=== PATIENT | female | born 1995 | race Caucasian/White ===

== ENCOUNTER 2023-09-19 11:59 | Day surgery (SDC) | payer OTHER ==
[~2023-09-19] VITALS: Ht 172.7 cm; Wt 61.4 kg
[~2023-09-19 11:59] MED LIST: IBLOOD GLUCOSE TEST STRIP 1 EA TEST VI PRN; LACTATED RINGER'S 1,000 ML IV SCH; LIDOCAINE HCL 1% 5 ML SDV INJ ONE; MIDAZOLAM HCL 5 MG/5 ML VIAL IV PRN; fentaNYL citrate 100 MCG/2 ML VIAL IV PRN
[2023-09-19 12:25] VITALS: BP 111/62
[2023-09-19] MEDS ORDERED: MIDAZOLAM HCL 5 MG/5 ML VIAL ONE (12:45)
[2023-09-19] MEDS ORDERED: fentaNYL citrate 100 MCG/2 ML VIAL ONE (12:45)
--- NOTE | 2023-09-19 14:14 | NUR ---
09/19/23 1414 Laura Blank 1402- PT PRESENTS TO PACU, SEMI GIRALDO LEFT LATERAL POSITION. PT WAKES TO STIMULI, SLURRED SPEECH, AND FALLS BACK TO SLEEP. PT DENIES PAIN AND NAUSEA. ABD FIRM, NON DISTENDED, ENCOURAGED TO PASS GAS. O2 AT 3L PER NC, BREATHING EVEN AND NON LABORED. LR INFUSING TO RAC IV, ALL MONITORS IN PLACE. 1406- PT SATS REMAIN 100% ON 3L O2 PER NC, MOVED TO ROOM AIR AT THIS TIME. NO SIGNS OF DISTRESS. 1414- PT CONTINUES TO REST AT THIS TIME, CONTINUE TO MONITOR.
[2023-09-19 14:54] VITALS: BP 102/56
[2023-09-19 14:54] LABS: BASOPHILS 0.2 % (0-2); EOSINOPHILS 0.3 % (0-6); HEMATOCRIT 32.6 % (35.0-50.0); HEMOGLOBIN 11.2 g/dL (12.0-18.0); LYMPHOCYTES 20.1 % (24-44); MCHC 34.3 g/dl (30-36); MCV 84.5 fl (81-99); MONOCYTES 5.3 % (0-12); NEUTROPHILS 74.1 % (39-80); PLATELET COUNT 217 K/uL (140-440); RBC 3.86 M/ul (4.3-5.7); RDW 12.3 (10.5-15.0)
--- NOTE | 2023-09-23 15:28 | OR ---
[facility] [address] [place], [place] [address] Signed DATE OF OPERATION: 09/19/2023 SURGEON: Gale Kevin MD PREOPERATIVE DIAGNOSES: Episodic bright red rectal bleeding. Negative family history of colon cancer. No evidence of internal hemorrhoids or fissure on exam. POSTOPERATIVE DIAGNOSES: 1. Distal sigmoid polyp with inflammatory features. 2. Normal colon otherwise. PROCEDURE: Total colonoscopy to cecum with hot snare polypectomy x1 and biopsies of rectum and sigmoid colon. ANESTHESIA: Intravenous sedation; fentanyl 200 mcg and Versed 10 mg. INDICATION: This 28-year-old white woman has had episodes of painless bright red rectal bleeding. She was seen in my office on a walk-in basis for this problem, was found to have no sign of anal fissure nor signs of internal hemorrhoids on anoscopy. It is notable that she has had pyelonephritis (clinical diagnosis) and treated with antibiotics in the past while in [place]. She recently has had no rectal bleeding. Has had episodes in the meantime. She is admitted at this time to undergo colonoscopy to assess a source of her episodic rectal bleeding. She understands the risk of bleeding, infection, and perforation related to colonoscopy and wished to proceed. FINDINGS: The prep was excellent. Complete colonoscopy was undertaken of the cecum with full intubation of the cecum. Though the cecum appeared normal, biopsies were obtained as were biopsies of the sigmoid and to a lesser extent rectum. There was a single polyp noted at the distal rectosigmoid area which had an inflammatory appearance to it generally. It was excised with hot snare technique. PROCEDURE IN DETAIL: The patient was brought to the endoscopy suite and placed in lateral decubitus position given intravenous sedation to a point of slurred speech and nystagmus. Digital rectal examination was normal. Electronically Signed By: GALE KEVIN MD 09/23/23 1528 PATIENT NAME: GEETA BEEBE OPERATIVE REPORT DATE OF : [birth year] REPORT #: [id number] PHYSICIAN: GALE KEVIN MD PCP: NO PRIMARY CARE PHYSICIAN REPORT IS CONFIDENTIAL AND NOT TO BE RELEASED WITHOUT AUTHORIZATION [facility] [address] [place], [place] [address] Signed An Olympus video colonoscope was passed in the rectum and manipulated throughout the colon noting a small somewhat inflammatory polyp of the rectosigmoid. This was excised with hot snare polypectomy technique and passed for pathology. The scope was advanced beyond this ultimately to the cecum. Additional sedation was given as needed. The prep was quite good. Biopsies were taken of the cecum, though it appeared normal. Scope was then withdrawn. Examination throughout showed no sign of abnormality. Biopsies were taken of the sigmoid and rectum to assess for occult colitis. The excision site in the rectosigmoid was hemostatic. Retroflexed view showed no evidence of fissure nor sign of hemorrhoids. The scope was straightened, withdrawn and the patient was taken to recovery room in good condition. CONCLUDING DIAGNOSIS: It is certainly possible that the small polyp of the rectosigmoid was accounting for her bleeding. There is no evidence of fissure or hemorrhoids and no obvious findings of colitis. Biopsies have been obtained to assess for occult colitis and complete polypectomy has been accomplished as well. PLAN: We recommend a high-fiber diet or fiber supplement such as Metamucil. She will call if the bleeding should recur. MD NYA Mayer/MODL /[id number] Copies: ~ Electronically Signed By: GALE KEVIN MD 09/23/23 1528 PATIENT NAME: GEETA BEEBE OPERATIVE REPORT DATE OF : [birth year] REPORT #: [id number] PHYSICIAN: GALE KEVIN MD PCP: NO PRIMARY CARE PHYSICIAN REPORT IS CONFIDENTIAL AND NOT TO BE RELEASED WITHOUT AUTHORIZATION
--- NOTE | 2023-09-23 15:40 | PATH ---
[facility] [address] [facility] [place] [place] [address] Signed SPECIMEN(S): A SIGMOID POLYP SPECIMEN(S): B CECUM COLON BIOPSY SPECIMEN(S): C SIGMOID COLON BIOPSY SPECIMEN SOURCE: A. SIGMOID POLYP B. CECUM COLON BIOPSY C. SIGMOID COLON BIOPSY CLINICAL HISTORY: Screening colonoscopy. Rectal bleeding FINAL PATHOLOGIC DIAGNOSIS: A. Sigmoid colon polyp: - Tubular adenoma. - Negative for high-grade dysplasia or malignancy. B. Cecum, biopsy: - Benign colonic mucosa with no significant pathologic abnormality. - No colitis or neoplasm identified. C. Sigmoid colon, biopsy: - Benign colonic mucosa with no significant pathologic abnormality. - No colitis or neoplasm identified. [facility] MICROSCOPIC EXAMINATION: Histologic sections of all submitted blocks are examined by light microscopy. These findings, together with the gross examination, support the pathologic diagnosis. GROSS DESCRIPTION: A. The specimen, labeled and designated "Rhina, designated per requisition, sigmoid colon polyp," is received in formalin and consists of one fragment of soft tena tissue that is up to 0.5 cm in greatest dimension. Entirely submitted in (A1). B. The specimen, labeled and designated "Rhina, designated as per requisition, cecum colon biopsy," is received in formalin and consists of two fragments of soft tena tissue that are up to 0.7 cm in greatest dimension. Entirely submitted in (B1). C. The specimen, labeled and designated "Rhina, designated per requisition, sigmoid colon biopsy," is received in formalin and consists of five fragments of soft tena tissue that are up to 0.9 cm in PATIENT NAME: GEETA BEEBE PATHOLOGY DATE OF : [birth year] REPORT #: [id number] PHYSICIAN: GIGI TRAVIS PCP: NO PRIMARY CARE PHYSICIAN REPORT IS CONFIDENTIAL AND NOT TO BE RELEASED WITHOUT AUTHORIZATION [facility] [address] [place], [place] [address] Signed greatest dimension. Entirely submitted in (C1). TW (under the direct supervision of a pathologist) The Gross Description was prepared using a voice recognition system. The report was reviewed for accuracy; however, sound-alike word errors, addition and/or deletions may occur. If there is any question about this report, please contact Client Services. ADDITIONAL NOTES: Immunohistochemical and/or in situ hybridization studies if performed in this case included appropriate positive controls that reacted as expected. This test was developed and its performance characteristics determined by [facility]. It has not been cleared or approved by the U.S. Food and Drug Administration. The FDA has determined that such clearance or approval is not necessary. This test is used for clinical purposes. It should not be regarded as investigational or for research. [facility] is certified under the Clinical Laboratory Improvement Amendments of 1988 (CLIA) as qualified to perform high complexity clinical laboratory testing. PERFORMING LABORATORY: Technical component was performed by [facility], [address] [place] [id number] (CLIA# [id number]). Professional interpretation was performed by [facility], [address] [place] [id number] (CLIA#: [id number]). Diagnostician: Iam Gilmore MD Pathologist Electronically Signed 09/23/2023 Copies: ~ PATIENT NAME: GEETA BEEBE PATHOLOGY DATE OF : [birth year] REPORT #: [id number] PHYSICIAN: GIGI PATHOLOGY PCP: NO PRIMARY CARE PHYSICIAN REPORT IS CONFIDENTIAL AND NOT TO BE RELEASED WITHOUT AUTHORIZATION
== END 2023-09-19 15:00 | disposition home or self-care (01) ==
LOC: OPS 11:59 → DS 11:59 → OPS 13:00
PROVIDERS: ATTEND Surgery
PROC: 0DBN8ZX Excision of Sigmoid Colon, Via Natural or Artificial Opening Endoscopic, Diagnostic (ICD-10-PCS; 2023-09-19)
PROC: 0DBH8ZX Excision of Cecum, Via Natural or Artificial Opening Endoscopic, Diagnostic (ICD-10-PCS; principal; 2023-09-19 13:00)
DX: D12.5 Benign neoplasm of sigmoid colon (principal); Z90.09 Acquired absence of other part of head and neck
CPT/HCPCS: 36415; 84703; 85025; 88305; 99153; G0500; J2250; J3010

== ENCOUNTER 2023-09-23 12:46 | Day surgery (SDC) | payer OTHER ==
[~2023-09-23] VITALS: Ht 172.7 cm; Wt 61.3 kg
[~2023-09-23 12:46] MED LIST changes: +LIDOCAINE HCL 4% 50 ML BTL TOP SCH; -MIDAZOLAM HCL 5 MG/5 ML VIAL IV PRN; -fentaNYL citrate 100 MCG/2 ML VIAL IV PRN
[2023-09-23 13:00] VITALS: BP 110/61
[2023-09-23] MEDS ORDERED: fentaNYL citrate 100 MCG/2 ML VIAL ONE (13:40)
[2023-09-23] MEDS ORDERED: MIDAZOLAM HCL 5 MG/5 ML VIAL ONE (13:40)
[2023-09-23] MEDS ORDERED: ondansetron HCL 4 MG/2 ML VIAL ONE (13:59)
--- NOTE | 2023-09-23 14:29 | NUR ---
09/23/23 1429 Laura Blank 1415- PT ARRIVES TO PACU, SEMI GIRALDO POSITION. AWAKE BUT DROWSY, REPORTS HER NAUSEA IS IMPROVING FROM PROCEDURE. LR INFUSING TO RAC IV. DENIES PAIN AT THIS TIME. 3L PER NC IN PLACE ON ARRIVAL AND REMOVED AT THIS TIME TO ROOM AIR. PT HAS NO COMPLAINTS. ALL MONITORS IN PLACE. 1422- DR KEVIN AT BEDSIDE TO DISCUSS FINDINGS. ICE WATER PROVIDED, TOLERATING WELL. 1428- PT RESTING AT THIS TIME, BREATHING EVEN AND NON LABORED. NO SIGNS OF DISTRESS.
[2023-09-23 15:18] VITALS: BP 96/59
--- NOTE | 2023-09-23 15:28 | OR ---
[facility] [address] [place], [place] [address] Signed DATE OF OPERATION: 09/23/2023 SURGEON: Gale Kevin MD PREOPERATIVE DIAGNOSES: 1. Anemia (hematocrit 32, recent colonoscopy showing only small polyp). 2. Persistent nausea. 3. Family history of celiac disease. POSTOPERATIVE DIAGNOSES: Normal-appearing upper endoscopy including esophagus, stomach, and duodenum. PROCEDURE: Esophagogastroduodenoscopy with biopsy. ANESTHESIA: Intravenous sedation; fentanyl 100 mcg and Versed 5 mg and periprocedural Zofran 4 mg. INDICATIONS FOR THE PROCEDURE: This is a 28-year-old white woman, who has no primary care physician. She is part of the [employer]. She has had episodic dark rectal bleeding. Anoscopy performed in the office setting recently showed no evidence of fissure, hemorrhoids, or other anorectal problem. She underwent colonoscopy four days ago, which confirmed a small polyp of the rectosigmoid, but not likely to account for dark red rectal bleeding. She was affirmed to have no sign of anorectal pathology. No sign of inflammatory bowel disease or other problem. CBC was checked postprocedure, showing hematocrit of 32. The patient does admit to rather persistent, pervasive nausea from time to time. On the basis of no clear evidence of lesion to account for dark blood per rectum and her nausea, consideration is made for peptic disease and on that basis, I have offered upper endoscopy. The risk of bleeding, infection, perforation related to upper endoscopy reported, reviewed in detail. She understands and wished to proceed. FINDINGS: Upper endoscopy was essentially normal. There was no sign of inflammatory lesion of the esophagus, stomach, or duodenum. There is certainly no ulceration, no neoplasm. Biopsies were obtained of the duodenum in several areas to assess for celiac disease as she does have family history of celiac disease. Stomach showed no sign of ulceration or diffuse gastritis. The flap valve was optimal. She tolerated procedure well though was not as deeply sedated as previously despite similar dosing of medication. Electronically Signed By: GALE KEVIN MD 09/23/23 1528 PATIENT NAME: GEETA BEEBE OPERATIVE REPORT DATE OF : [birth year] REPORT #: [id number] PHYSICIAN: GALE KEVIN MD PCP: NO PRIMARY CARE PHYSICIAN REPORT IS CONFIDENTIAL AND NOT TO BE RELEASED WITHOUT AUTHORIZATION [facility] [address] [place], [place] [address] Signed DESCRIPTION OF PROCEDURE: The patient was brought to the endoscopy suite given topical lidocaine hypopharyngeal anesthesia. In the lateral decubitus position, she was given intravenous sedation to the point of slurred speech and nystagmus with full cardiopulmonary monitoring. A bite block was placed. An Olympus video upper endoscope was passed into the hypopharynx. The vocal cords appeared normal. Scope was advanced to the esophagus without problem throughout its length, it was normal in every way. The scope was passed to the stomach, which was insufflated. There was no sign of bile or other abnormality. Rugal folds were normal. The antrum appeared normal as did the pylorus. The scope was passed through into the duodenum. The duodenum was normal. Biopsies were obtained distally and proximally to assess for celiac disease as well as subacute inflammation. The ampulla was identified as normal. The scope was withdrawn to the stomach and biopsies taken there for both HUSSAIN and pathologic testing. Retroflexed view was undertaken showing a good flap valve. The scope was withdrawn to the distal esophagus and biopsies obtained of the normal appearing esophagus in the distal aspect. The scope was further withdrawn and removed. The patient was taken to the recovery room in good condition. CONCLUDING DIAGNOSIS: No lesion to account for anemia. She may have subclinical peptic disease or gastroesophageal reflux. We will empirically treated with Prilosec 20 mg daily. We will see her back in the office in 4-6 weeks to assess her progress and review her pathology reports. MD NYA Mayer/MODL /[id number] Copies: ~ Electronically Signed By: GALE KEVIN MD 09/23/23 1528 PATIENT NAME: GEETA BEEBE OPERATIVE REPORT DATE OF : [birth year] REPORT #: [id number] PHYSICIAN: GALE KEVIN MD PCP: NO PRIMARY CARE PHYSICIAN REPORT IS CONFIDENTIAL AND NOT TO BE RELEASED WITHOUT AUTHORIZATION
--- NOTE | 2023-09-29 14:21 | PATH ---
[facility] [facility] [address] [facility] [place], [place] [address] Signed SPECIMEN(S): A ANTRUM BIOPSY SPECIMEN(S): B DUODENAL BIOPSY SPECIMEN(S): C LOWER ESOPHAGUS BIOPSY SPECIMEN SOURCE: A. ANTRUM BIOPSY B. DUODENAL BIOPSY C. LOWER ESOPHAGUS BIOPSY CLINICAL HISTORY: Painless rectal bleeding, negative colonoscopy FINAL PATHOLOGIC DIAGNOSIS: A. Stomach, antrum, biopsy: - No significant histopathologic alterations. B. Duodenum, biopsy: - No significant histopathology. C. Esophagus, lower, biopsy: - Reflux esophagitis. - No evidence of Kaur's esophagus. COMMENT: The sections through the gastric biopsies show fragments of histologically unremarkable antral mucosa. There is no evidence of acute or chronic inflammation. There is no evidence of H. pylori, intestinal metaplasia, abnormal infiltrates or neoplasia. The sections from the duodenal biopsy show portions of duodenal mucosa with long fingerlike villi. There is no villous atrophy, crypt hyperplasia or intraepithelial lymphocytosis making a diagnosis of celiac disease unlikely. There is no evidence of peptic duodenitis, microorganisms, abnormal infiltrates or neoplasia. The sections through the biopsy show strips of reactive appearing squamous mucosa with basal cell hyperplasia. The epithelium is infiltrated by lymphocytes and small numbers of eosinophils. No glandular mucosa or intestinal metaplasia is identified. [facility] MICROSCOPIC EXAMINATION: Histologic sections of all submitted blocks are examined by light microscopy. These findings, together with the gross examination, support the pathologic diagnosis. PATIENT NAME: GEETA BEEBE PATHOLOGY DATE OF : [birth year] REPORT #: [id number] PHYSICIAN: GIGI PATHOLOGY PCP: NO PRIMARY CARE PHYSICIAN REPORT IS CONFIDENTIAL AND NOT TO BE RELEASED WITHOUT AUTHORIZATION [facility] [address] [place], [place] [address] Signed GROSS DESCRIPTION: A. The specimen, labeled and designated "Concepción, antrum biopsy," is received in formalin and consists of two tena soft tissue fragments, ranging from 0.3-0.5 cm. Entirely submitted in (A1). B. The specimen, labeled and designated "Concepción, duodenal biopsy," is received in formalin and consists of three tena soft tissue fragments, ranging from 0.2-0.4 cm. Entirely submitted in (B1). C. The specimen, labeled and designated "Concepción, lower esophagus biopsy," is received in formalin and consists of three tena soft tissue fragments, ranging from 0.2-0.5 cm. Entirely submitted in (C1). VB (under the direct supervision of a pathologist) The Gross Description was prepared using a voice recognition system. The report was reviewed for accuracy; however, sound-alike word errors, addition and/or deletions may occur. If there is any question about this report, please contact Client Services. ADDITIONAL NOTES: Immunohistochemical and/or in situ hybridization studies if performed in this case included appropriate positive controls that reacted as expected. This test was developed and its performance characteristics determined by [facility]. It has not been cleared or approved by the U.S. Food and Drug Administration. The FDA has determined that such clearance or approval is not necessary. This test is used for clinical purposes. It should not be regarded as investigational or for research. [facility] is certified under the Clinical Laboratory Improvement Amendments of 1988 (CLIA) as qualified to perform high complexity clinical laboratory testing. PERFORMING LABORATORY: Technical component was performed by [facility], [address] [place] [id number] (CLIA# [id number]). Professional interpretation was performed by [facility], [address] [place] [address] (CLIA#:[id number]). Diagnostician: Mj Vargas MD Pathologist Electronically Signed 09/29/2023 Copies: PATIENT NAME: CONCEPCIÓNGEETA AMAYA PATHOLOGY DATE OF : [birth year] REPORT #: [id number] PHYSICIAN: GIGI PATHOLOGY PCP: NO PRIMARY CARE PHYSICIAN REPORT IS CONFIDENTIAL AND NOT TO BE RELEASED WITHOUT AUTHORIZATION [address] [address] Signed ~ PATIENT NAME: GEETA BEEBE PATHOLOGY DATE OF : [birth year] REPORT #: [id number] PHYSICIAN: GIGI PATHOLOGY PCP: NO PRIMARY CARE PHYSICIAN REPORT IS CONFIDENTIAL AND NOT TO BE RELEASED WITHOUT AUTHORIZATION
== END 2023-09-23 15:22 | disposition home or self-care (01) ==
LOC: DS 12:46 → OPS 12:46 → DS 13:45 → OPS 15:22
PROVIDERS: ATTEND Surgery
PROC: 0DB98ZX Excision of Duodenum, Via Natural or Artificial Opening Endoscopic, Diagnostic (ICD-10-PCS; principal; 2023-09-23 13:45)
DX: K21.00 Gastro-esophageal reflux disease with esophagitis, without bleeding (principal); D64.9 Anemia, unspecified; Z83.79 Family history of other diseases of the digestive system; Z90.09 Acquired absence of other part of head and neck
CPT/HCPCS: 88305; 99153; G0500; J2250; J2405; J3010; J7121